=== PATIENT | male | born 1940 | race African-American/Black ===

== ENCOUNTER 2020-06-20 02:42 | Inpatient (IN) | payer OTHER ==
[~2020-06-20] VITALS: Ht 162.6 cm; Wt 70.3 kg
[2020-06-20] MEDS ORDERED: ATORVASTATIN CA10 MG PO (03:54)
[2020-06-20] MEDS ORDERED: FORTAMET500 MG PO (03:54)
[2020-06-20] MEDS ORDERED: NASAL MIST126 ML (03:55)
== END 2020-07-20 17:44 | disposition expired | DRG 207 ==
LOC: ER 02:42 → ICU-2 10:07 → ICU 10:07
PROVIDERS: ADMIT Internal Medicine; ATTEND Internal Medicine
PROC: 5A1945Z Respiratory Ventilation, 24-96 Consecutive Hours (ICD-10-PCS; 2020-06-20)
PROC: 0BH17EZ Insertion of Endotracheal Airway into Trachea, Via Natural or Artificial Opening (ICD-10-PCS; 2020-06-20)
PROC: 4A033R1 Measurement of Arterial Saturation, Peripheral, Percutaneous Approach (ICD-10-PCS; 2020-06-20)
PROC: 8E0ZXY6 Isolation (ICD-10-PCS; 2020-06-20)
PROC: B54DZZZ Ultrasonography of Bilateral Lower Extremity Veins (ICD-10-PCS; 2020-06-20)
PROC: 0BH17EZ Insertion of Endotracheal Airway into Trachea, Via Natural or Artificial Opening (ICD-10-PCS; 2020-06-20)
PROC: B24BZZZ Ultrasonography of Heart with Aorta (ICD-10-PCS; 2020-06-20)
PROC: 02HV33Z Insertion of Infusion Device into Superior Vena Cava, Percutaneous Approach (ICD-10-PCS; 2020-06-21)
PROC: 5A1955Z Respiratory Ventilation, Greater than 96 Consecutive Hours (ICD-10-PCS; principal; 2020-06-24)
DX: J96.01 Acute respiratory failure with hypoxia (principal); J69.0 Pneumonitis due to inhalation of food and vomit; A41.9 Sepsis, unspecified organism; B37.1 Pulmonary candidiasis; R65.21 Severe sepsis with septic shock; E87.2 Acidosis; K92.0 Hematemesis; R04.2 Hemoptysis; D62 Acute posthemorrhagic anemia; E87.0 Hyperosmolality and hypernatremia; R04.89 Hemorrhage from other sites in respiratory passages; I10 Essential (primary) hypertension; E11.9 Type 2 diabetes mellitus without complications; G30.9 Alzheimer's disease, unspecified; F02.80 Dementia in other diseases classified elsewhere, unspecified severity, without behavioral disturbance, psychotic disturbance, mood disturbance, and anxiety; E87.5 Hyperkalemia; I48.0 Paroxysmal atrial fibrillation; Z66 Do not resuscitate; D69.6 Thrombocytopenia, unspecified; Z20.822 Contact with and (suspected) exposure to COVID-19; Z79.4 Long term (current) use of insulin